=== PATIENT | female | born 1950 | race African-American/Black ===

== ENCOUNTER 2019-09-15 07:18 | Emergency (ER) | payer OTHER, MEDICARE ==
[~2019-09-15] VITALS: Ht 167.6 cm; Wt 90.3 kg
[2019-09-15 07:28] VITALS: Ht 167.6 cm; Wt 90.3 kg
[2019-09-15 09:56] VITALS: BP 135/62
== END 2019-09-15 09:56 | disposition home or self-care (01) ==
LOC: ED 07:18
DX: J03.90 Acute tonsillitis, unspecified (principal); J40 Bronchitis, not specified as acute or chronic; E78.00 Pure hypercholesterolemia, unspecified; M06.9 Rheumatoid arthritis, unspecified; Z88.0 Allergy status to penicillin
CPT/HCPCS: 87804; J7512; Q0092

== ENCOUNTER 2020-08-02 10:40 | Emergency (ER) | payer OTHER, MEDICARE ==
[~2020-08-02] VITALS: Ht 167.6 cm; Wt 91.6 kg
[2020-08-02 10:49] VITALS: Ht 167.6 cm; Wt 91.6 kg
[2020-08-02 11:32] LABS: BASOPHIL % 0.5 % (0-2); PLATELET COUNT 323 x10^3mcL (130-400)
[2020-08-02 12:04] LABS: CALCIUM 9.3 mg/dL (8.5-10.1); CHLORIDE SERUM 103 mmol/L (98-107); CREATININE SERUM 1.1 mg/dL (0.6-1.0); GLUCOSE SERUM 95 mg/dL (74-106); POTASSIUM SERUM 4.2 mmol/L (3.5-5.1); SODIUM SERUM 137 mmol/L (136-145)
[2020-08-02 12:08] LABS: ALBUMIN 3.4 g/dL (3.4-5.0); ALKALINE PHOSPHATASE 56 U/L (46-116); ALT/SGPT 19 U/L (14-59); AST/SGOT 15 U/L (15-37); BILIRUBIN TOTAL 0.51 mg/dL (0.20-1.00)
[2020-08-02 13:17] VITALS: BP 132/67
== END 2020-08-02 13:37 | disposition home or self-care (01) ==
LOC: ED 10:40
PROVIDERS: Emergency Medicine
DX: R42 Dizziness and giddiness (principal); M06.9 Rheumatoid arthritis, unspecified; Z88.0 Allergy status to penicillin; Z90.710 Acquired absence of both cervix and uterus
CPT/HCPCS: 83880; Q0092